=== PATIENT | female | born 1980 | race Caucasian/White ===

== ENCOUNTER 2018-06-08 03:05 | Inpatient (IN) | payer OTHER ==
[~2018-06-08] VITALS: Ht 175.3 cm; Wt 81.6 kg
[2018-06-08] MEDS ORDERED: EPINEPHrine HCL 0.5 ML NEB ONE (03:15)
[2018-06-08] MEDS ORDERED: MAGNESIUM SULFATE 1GM/100ML 200 ML IV ONE (03:17)
[2018-06-08] MEDS: MIDAZOLAM DRIP 50 mg/50mL 50 ML IV SCH ×4 (03:30→13:43)
[2018-06-08] MEDS ORDERED: PROPOFOL 100 ML IV SCH (04:01)
[2018-06-08] MEDS ORDERED: fentaNYL Drip 2500mCg/250mlNS 250 ML IV SCH (04:01)
[2018-06-08] MEDS ORDERED: LORAZEPAM MDV 2MG/ML 10 ML IV ONE (04:11)
[2018-06-08] MEDS: LORazepam 2MG/ML-1ML VIAL IV ONE ×2 (04:11→06:28)
[2018-06-08] MEDS ORDERED: HALOPERIDOL LACTATE 5 MG/ML INJ VIAL ONE (04:12)
[2018-06-08] MEDS ORDERED: ETOMIDATE (2MG/ML) 20ML VIAL IV ONE (04:15)
[2018-06-08] MEDS ORDERED: methylPREDNISolone SOD SUCC 125 MG/2 ML VL IV ONE (04:15)
[2018-06-08] MEDS ORDERED: SUCCINYLCHOLINE CHLORIDE 20 MG/ML 10ML VIAL IV ONE (04:15)
[2018-06-08] MEDS ORDERED: FAMOTIDINE (10MG/ML) 2ML VL IV ONE (04:15)
[2018-06-08] MEDS ORDERED: ROCURONIUM 10MG/ML 10ML VIAL IV ONE (04:15)
[2018-06-08] MEDS ORDERED: diphenhdrAMINE HCL 50 MG/1 ML VL IV ONE (04:15)
[2018-06-08 04:22] VITALS: BP 146/82
[2018-06-08] MEDS ORDERED: LORAZEPAM MDV 2MG/ML 50 MG in SODIUM CHL 0.9% 25 ML IV SCH (05:05)
[2018-06-08 05:57] LABS: Basophils # (auto) 0 uL; Basophils % (auto) 0.1 % (0.0-2.0); Eosinophils # (auto) 0 uL; Lymphocytes # (auto) 1.1 uL; Lymphocytes % (auto) 8.2 % (10.0-50.0); Monocytes # (auto) 0.1 uL; Neutrophils % (auto) 90.7 % (37.0-80.0)
[2018-06-08 05:59] LABS: Eosinophils % (auto) 0.1 % (0.0-7.0); Hematocrit 46.3 % (36.0-46.0); Hemoglobin 15.9 g/dL (12.2-16.2); Mean Corpuscular Hemoglobin 35.9 pg (28.0-32.0); Mean Corpuscular Hgb Conc. 34.3 g/dL (32.0-36.0); Mean Corpuscular Volume 104.5 fL (80.0-100.0); Monocytes % (auto) 0.9 % (0.0-12.0); Neutrophils # (auto) 12.7 uL; Platelet Count (auto) 186 10^3/uL (140-450); Red Blood Cells 4.43 10^6/uL (4.0-5.20); Red Cell Distribution Width 15.2 % (11.8-14.3)
[2018-06-08] MEDS ORDERED: HALOPERIDOL LACTATE 5 MG/ML INJ VIAL IM ONE (06:00)
[2018-06-08 06:08] LABS: Urine Bacteria NONE SEEN /hpf (None Seen); Urine Blood Negative /uL (Negative); Urine Specific Gravity 1.003 (1.001-1.035); Urine WBC <1 /hpf (0 - 5)
[2018-06-08 06:10] VITALS: BP 125/70
[2018-06-08 06:13] LABS: Alanine Aminotransferase 95 U/L (13-56); Albumin 3.6 g/dL (3.4-5.0); Anion Gap 12 (5-15); Aspartate Aminotransferase 82 U/L (15-37); BUN/Creatinine Ratio 8.3; Blood Urea Nitrogen 6 mg/dL (7-18); Calcium 6.9 mg/dL (8.5-10.1); Carbon Dioxide 16 mmol/L (21-32); Chloride 117 mmol/L (98-107); GFR African American > 60 mL/min; GFR Non-African American > 60 mL/min; Glucose 145 mg/dL (74-106); Potassium 3.2 mmol/L (3.5-5.1); Sodium 145 mmol/L (136-145)
[2018-06-08 06:15] LABS: Amphetamine Screen, Urine NEGATIVE (NEGATIVE); Barbiturate Scree,Urine NEGATIVE (NEGATIVE); Benzodiazephine Screen, Urine POSITIVE (NEGATIVE); Cannabinoid Screen, Urine NEGATIVE (NEGATIVE); Cocaine Screen, Urine NEGATIVE (NEGATIVE); Opiate Scree,Urine NEGATIVE (NEGATIVE); Phencyclidine Screen, Urine NEGATIVE (NEGATIVE)
[2018-06-08 06:16] LABS: Alkaline Phosphatase 81 U/L (45-117); Bilirubin, Total 0.6 mg/dL (0.2-1.0); Total Protein 7.2 g/dL (6.4-8.2)
[2018-06-08 08:12] VITALS: BP 115/71
[2018-06-08] MEDS ORDERED: MORPHINE SULFATE 10 MG/ML INJ 1ML SDV IV PRN (09:15)
[2018-06-08] MEDS ORDERED: NITROGLYCERIN 0.4 MG SL TAB SL PRN (09:15)
[2018-06-08] MEDS ORDERED: SODIUM CHLORIDE 0.9% 1,000 ML IV SCH (09:15)
[2018-06-08] MEDS ORDERED: diphenhdrAMINE HCL 50 MG/1 ML VL IV PRN (09:15)
[2018-06-08] MEDS ORDERED: POTASSIUM CHLORIDE 40 MEQ, LIDOCAINE 1% (LOCAL ANESTH.) 4 ML in SODIUM CHL 0.9% 100 ML IV ONE (09:15)
[2018-06-08] MEDS ORDERED: DOXYCYCLINE 100MG/250ML 250 ML IV SCH (09:15)
[2018-06-08] MEDS ORDERED: FAMOTIDINE (10MG/ML) 2ML VL IV SCH (10:00)
[2018-06-08 10:07] VITALS: BP 123/77
[2018-06-08 11:59] LABS: Urine Bacteria NONE SEEN /hpf (None Seen); Urine Blood TRACE /uL (Negative); Urine Mucus FEW (None Seen); Urine Specific Gravity 1.021 (1.001-1.035); Urine WBC 105 /hpf (0 - 5)
[2018-06-08] MEDS ORDERED: ALBUTEROL SULF 2.5 MG/0.5ML(0.5%) NEB SOLN NEB SCH (12:00)
[2018-06-08] MEDS ORDERED: IPRATROPIUM BROM 0.5 MG/2.5ML INH SOL NEB SCH (12:00)
[2018-06-08 12:05] VITALS: BP 133/88
[2018-06-08] MEDS ORDERED: LORazepam 2MG/ML-1ML VIAL ONE (12:05)
[2018-06-08] MEDS ORDERED: LORazepam 2MG/ML-1ML VIAL IV PRN (12:30)
[2018-06-08 13:51] VITALS: BP 127/82
[2018-06-08] MEDS ORDERED: methylPREDNISolone SOD SUCC 125 MG/2 ML VL IV SCH (14:00)
--- NOTE | 2018-06-08 14:00 | NUR ---
Respiratory note: TOOK PATIENT OFF VENTILATOR. TRANSPORT TEAM TOOK OVER PATIENT AND PLACED ON TRANPORT VENT.
== END 2018-06-08 14:29 | disposition short-term general hospital (02) | DRG 915 ==
LOC: EDBD 03:05 → ER 03:05 → OVERFLOW 09:23 → UNDODEPER 14:51
PROVIDERS: ADMIT Nurse Practitioner Acute Care; ATTEND Nurse Practitioner Acute Care
PROC: 5A1935Z Respiratory Ventilation, Less than 24 Consecutive Hours (ICD-10-PCS; principal; 2018-06-08)
PROC: 0BH17EZ Insertion of Endotracheal Airway into Trachea, Via Natural or Artificial Opening (ICD-10-PCS; 2018-06-08)
DX: T78.2XXA Anaphylactic shock, unspecified, initial encounter (principal); J96.00 Acute respiratory failure, unspecified whether with hypoxia or hypercapnia; D47.09 Other mast cell neoplasms of uncertain behavior; R65.10 Systemic inflammatory response syndrome (SIRS) of non-infectious origin without acute organ dysfunction; E87.6 Hypokalemia; D72.829 Elevated white blood cell count, unspecified; Z90.49 Acquired absence of other specified parts of digestive tract; Z90.710 Acquired absence of both cervix and uterus
CPT/HCPCS: 31500; 36415; 36600; 71045; 80053; 80307; 81001; 82805; 85025; 87040; 87070; 87086; 87205; 94002; 94640; 96361; 96365; 96375; 99291; G0378; J2001; J2250; J3490

== ENCOUNTER 2018-07-06 00:26 | Emergency (ER) | payer OTHER ==
[~2018-07-06] VITALS: Ht 172.7 cm; Wt 63.5 kg
[2018-07-06] MEDS ORDERED: LORazepam 2MG/ML-1ML VIAL ONE (00:40)
[2018-07-06] MEDS ORDERED: LORazepam 2MG/ML-1ML VIAL IM ONE (01:00)
[2018-07-06 03:59] LABS: Basophils # (auto) 0 uL; Basophils % (auto) 0.1 % (0.0-2.0); Eosinophils # (auto) 0 uL; Eosinophils % (auto) 0.1 % (0.0-7.0); Hemoglobin 16.1 g/dL (12.2-16.2); Mean Corpuscular Hgb Conc. 34.9 g/dL (32.0-36.0); Monocytes # (auto) 0.6 uL; Monocytes % (auto) 5.1 % (0.0-12.0)
[2018-07-06 04:01] LABS: Lymphocytes # (auto) 1.6 uL; Lymphocytes % (auto) 13.4 % (10.0-50.0); Mean Corpuscular Hemoglobin 36.1 pg (28.0-32.0); Mean Corpuscular Volume 103.3 fL (80.0-100.0); Neutrophils # (auto) 9.8 uL; Neutrophils % (auto) 81.3 % (37.0-80.0); Nucleated Red Blood Cells % 0.1 %; Platelet Count (auto) 251 10^3/uL (140-450); Red Blood Cells 4.45 10^6/uL (4.0-5.20); Red Cell Distribution Width 14.8 % (11.8-14.3); White Blood Cell 12.1 10^3/uL (4.4-10.8)
[2018-07-06 04:12] LABS: Albumin 3.8 g/dL (3.4-5.0); BUN/Creatinine Ratio 9.8; Calcium 7.9 mg/dL (8.5-10.1); Potassium 3.8 mmol/L (3.5-5.1)
[2018-07-06 04:15] LABS: Bilirubin, Total 0.2 mg/dL (0.2-1.0); Total Protein 7.6 g/dL (6.4-8.2)
[2018-07-06 05:40] VITALS: BP 114/76
== END 2018-07-06 05:18 | disposition home or self-care (01) ==
LOC: EDBD 00:26 → ER 00:31
CPT/HCPCS: 36415 ×2; 70450 ×2; 80053 ×2; 85025 ×2; 94761 ×2; 96372 ×2; 99284; J2060

== ENCOUNTER 2018-10-17 01:57 | Emergency (ER) | payer OTHER ==
[~2018-10-17] VITALS: Ht 170.2 cm; Wt 81.6 kg
[2018-10-17 02:59] LABS: Basophils # (auto) 0.1 uL; Basophils % (auto) 0.7 % (0.0-2.0); Eosinophils # (auto) 0 uL; Hematocrit 51.1 % (36.0-46.0); Hemoglobin 16.9 g/dL (12.2-16.2); Lymphocytes # (auto) 3.8 uL; Lymphocytes % (auto) 22.7 % (10.0-50.0); Mean Corpuscular Hgb Conc. 33.1 g/dL (32.0-36.0); Mean Corpuscular Volume 99.7 fL (80.0-100.0); Monocytes # (auto) 0.3 uL; Monocytes % (auto) 1.9 % (0.0-12.0); Neutrophils # (auto) 12.6 uL; Neutrophils % (auto) 74.7 % (37.0-80.0); Nucleated Red Blood Cells % 0.1 %; Platelet Count (auto) 299 10^3/uL (140-450); Red Blood Cells 5.12 10^6/uL (4.0-5.20); White Blood Cell 16.8 10^3/uL (4.4-10.8)
[2018-10-17 03:20] LABS: Alanine Aminotransferase 79 U/L (13-56); Albumin 4.3 g/dL (3.4-5.0); Anion Gap 22 (5-15); Aspartate Aminotransferase 57 U/L (15-37); BUN/Creatinine Ratio 11.5; Blood Urea Nitrogen 10 mg/dL (7-18); Calcium 8.9 mg/dL (8.5-10.1); Carbon Dioxide 13 mmol/L (21-32); Chloride 107 mmol/L (98-107); GFR African American 94 mL/min; GFR Non-African American 77 mL/min; Glucose 207 mg/dL (74-106); Potassium 3.1 mmol/L (3.5-5.1); Sodium 142 mmol/L (136-145)
[2018-10-17 03:28] LABS: Alkaline Phosphatase 82 U/L (45-117); Bilirubin, Total 0.3 mg/dL (0.2-1.0); Magnesium 1.8 mg/dL (1.6-2.6); Total Protein 8.6 g/dL (6.4-8.2)
[2018-10-17 03:53] LABS: Urine Bacteria FEW /hpf (None Seen); Urine Blood Negative /uL (Negative); Urine Specific Gravity 1.007 (1.001-1.035); Urine WBC 1 /hpf (0 - 5)
[2018-10-17] MEDS ORDERED: SODIUM CHLORIDE 0.9% 1,000 ML IV ONE (07:45)
[2018-10-17] MEDS ORDERED: diphenhdrAMINE HCL 50 MG/1 ML VL IV ONE (07:45)
[2018-10-17] MEDS ORDERED: EPINEPHrine HCL 1 MG/1 ML AMP SC ONE (08:30)
[2018-10-17] MEDS ORDERED: methylPREDNISolone SOD SUCC 125 MG/2 ML VL IV ONE (08:30)
[2018-10-17 09:10] VITALS: BP 121/67
== END 2018-10-17 10:19 | disposition home or self-care (01) ==
LOC: EDBD 01:57 → ER 02:02
DX: T78.40XA Allergy, unspecified, initial encounter (principal); X58.XXXA Exposure to other specified factors, initial encounter; Z88.6 Allergy status to analgesic agent
CPT/HCPCS: 36415; 71045; 80053; 81001; 83735; 84484; 85025; 93005; 96372; 96374; 96375; 99284; J0171; J1200; J2930

== ENCOUNTER 2018-11-09 00:05 | Emergency (ER) | payer OTHER ==
[~2018-11-09] VITALS: Ht 162.6 cm; Wt 83.9 kg
[2018-11-09] MEDS ORDERED: methylPREDNISolone SOD SUCC 125 MG/2 ML VL ONE (00:09)
== END 2018-11-09 01:09 | disposition left against medical advice (07) ==
LOC: EDBD 00:05 → ER 00:08
DX: T78.2XXA Anaphylactic shock, unspecified, initial encounter (principal); F43.22 Adjustment disorder with anxiety; Y92.89 Other specified places as the place of occurrence of the external cause; Z53.29 Procedure and treatment not carried out because of patient's decision for other reasons
CPT/HCPCS: 36600; 82805; 99284; J2930

== ENCOUNTER 2019-02-27 23:24 | Emergency (ER) | payer OTHER ==
[~2019-02-27] VITALS: Ht 170.2 cm; Wt 68.0 kg
[2019-02-28] MEDS ORDERED: ALBUTEROL SULF 2.5 MG/0.5ML(0.5%) NEB SOLN NEB ONE
[2019-02-28] MEDS ORDERED: IPRATROPIUM BROM 0.5 MG/2.5ML INH SOL NEB ONE
[2019-02-28] MEDS ORDERED: LORazepam 2MG/ML-1ML VIAL IV ONE
[2019-02-28 00:58] LABS: Basophils # (auto) 0 uL; Basophils % (auto) 0.2 % (0.0-2.0); Eosinophils # (auto) 0 uL; Eosinophils % (auto) 0.5 % (0.0-7.0); Hematocrit 47.4 % (36.0-46.0); Hemoglobin 16.7 g/dL (12.2-16.2); Lymphocytes # (auto) 4.4 uL; Lymphocytes % (auto) 45.2 % (10.0-50.0); Mean Corpuscular Hemoglobin 33.3 pg (28.0-32.0); Mean Corpuscular Hgb Conc. 35.2 g/dL (32.0-36.0); Mean Corpuscular Volume 94.7 fL (80.0-100.0); Monocytes # (auto) 0.4 uL; Monocytes % (auto) 4.6 % (0.0-12.0); Neutrophils # (auto) 4.9 uL; Neutrophils % (auto) 49.5 % (37.0-80.0); Platelet Count (auto) 244 10^3/uL (140-450); Red Blood Cells 5.01 10^6/uL (4.0-5.20); Red Cell Distribution Width 12.7 % (11.8-14.3); White Blood Cell 9.8 10^3/uL (4.4-10.8)
[2019-02-28 01:13] LABS: Albumin 3.9 g/dL (3.4-5.0); Calcium 8.3 mg/dL (8.5-10.1); Potassium 3.6 mmol/L (3.5-5.1)
[2019-02-28 01:15] LABS: BUN/Creatinine Ratio 10.5
[2019-02-28 01:18] LABS: Bilirubin, Total 0.1 mg/dL (0.2-1.0); Total Protein 7.7 g/dL (6.4-8.2)
[2019-02-28 02:51] VITALS: BP 109/74
== END 2019-02-28 03:33 | disposition home or self-care (01) ==
LOC: EDBD 23:24 → ER 23:26
DX: F41.0 Panic disorder [episodic paroxysmal anxiety] (principal); F43.22 Adjustment disorder with anxiety; F17.210 Nicotine dependence, cigarettes, uncomplicated
CPT/HCPCS: 36415; 71045; 80053; 85025; 94640; 96374; 99284; J2060; J7611; J7644

== ENCOUNTER 2019-05-12 03:01 | Emergency (ER) | payer OTHER ==
[~2019-05-12] VITALS: Ht 175.3 cm; Wt 86.2 kg
[2019-05-12] MEDS ORDERED: EPINEPHrine HCL 0.5 ML NEB ONE (03:08)
[2019-05-12] MEDS ORDERED: EPINEPHrine HCL 0.5 ML NEB NEB ONE (03:15)
[2019-05-12 03:29] LABS: Hematocrit 51.8 % (36.0-46.0); Hemoglobin 17.3 g/dL (12.2-16.2); Mean Corpuscular Hemoglobin 32.8 pg (28.0-32.0); Mean Corpuscular Hgb Conc. 33.4 g/dL (32.0-36.0); Mean Corpuscular Volume 98.2 fL (80.0-100.0); Platelet Count (auto) 317 10^3/uL (140-450); Red Blood Cells 5.27 10^6/uL (4.0-5.20); Red Cell Distribution Width 13.3 % (11.8-14.3); White Blood Cell 16.1 10^3/uL (4.4-10.8)
[2019-05-12 03:33] LABS: Band Neutrophils % (manual) 0; Basophils % (manual) 0 (0.0-2.0); Blast Cells 0; Metamyelocytes % 0; Myelocytes % 0; Promyelocytes % 0; Reactive Lymphocytes 0
[2019-05-12 03:37] LABS: Anion Gap 15 (5-15); BUN/Creatinine Ratio 8.1; Blood Urea Nitrogen 7 mg/dL (7-18); Calcium 8.9 mg/dL (8.5-10.1); Carbon Dioxide 12 mmol/L (21-32); Chloride 115 mmol/L (98-107); GFR African American 95 mL/min; GFR Non-African American 78 mL/min; Glucose 127 mg/dL (74-106); Potassium 3.3 mmol/L (3.5-5.1); Sodium 142 mmol/L (136-145)
[2019-05-12 04:53] LABS: Alanine Aminotransferase 73 U/L (13-56); Alkaline Phosphatase 79 U/L (45-117); Aspartate Aminotransferase 40 U/L (15-37); Bilirubin, Total 0.3 mg/dL (0.2-1.0)
[2019-05-12 04:54] LABS: Total Protein 8.4 g/dL (6.4-8.2)
[2019-05-12 05:45] LABS: Eosinophils % (manual) 1 (0-7); Lymphocytes % (manual) 51 (10.0-50.0); Monocytes % (manual) 6 (0-12)
[2019-05-12 06:00] VITALS: BP 104/63
== END 2019-05-12 06:35 | disposition home or self-care (01) ==
LOC: EDBD 03:01 → ER 03:08
DX: T78.2XXA Anaphylactic shock, unspecified, initial encounter (principal); F17.210 Nicotine dependence, cigarettes, uncomplicated; Z88.6 Allergy status to analgesic agent; Z88.1 Allergy status to other antibiotic agents; Z88.8 Allergy status to other drugs, medicaments and biological substances; X58.XXXA Exposure to other specified factors, initial encounter
CPT/HCPCS: 36415; 70360; 80053; 85007; 85027; 94640

== ENCOUNTER 2019-07-13 00:20 | Inpatient (IN) | payer OTHER ==
[~2019-07-13] VITALS: Ht 170.2 cm; Wt 86.0 kg
[2019-07-13] VITALS (52 sets, daily range): BP systolic 102–162; BP diastolic 46–103
[2019-07-13] MEDS ORDERED: IPRATROPIUM BROM 0.5 MG/2.5ML INH SOL NEB ONE (00:45)
[2019-07-13] MEDS ORDERED: ALBUTEROL SULF 2.5 MG/0.5ML(0.5%) NEB SOLN NEB ONE (00:45)
[2019-07-13] MEDS ORDERED: ETOMIDATE (2MG/ML) 20ML VIAL IV ONE ×2 (00:50→05:30)
[2019-07-13] MEDS ORDERED: SUCCINYLCHOLINE CHLORIDE 20 MG/ML 10ML VIAL IV ONE ×2 (00:51→05:30)
[2019-07-13] MEDS: PROPOFOL 100 ML IV SCH ×3 (00:57→22:52)
[2019-07-13] MEDS: MIDAZOLAM DRIP 50 mg/50mL 50 ML IV SCH ×3 (00:57→20:44)
[2019-07-13] MEDS ORDERED: PROPOFOL 100 ML IV ONE (01:05)
[2019-07-13] MEDS ORDERED: MIDAZOLAM DRIP 50 mg/50mL 50 ML IV ONE (01:05)
[2019-07-13] MEDS ORDERED: SODIUM BICARBONATE 8.4% INJ 50ML SYRINGE ONE (01:41)
[2019-07-13] MEDS ORDERED: SODIUM BICARBONATE 8.4 % INJ 50ML VIAL IV ONE (01:45)
[2019-07-13] MEDS ORDERED: PHENobarbital SODIUM 65 MG/ML VL IV ONE (02:00)
[2019-07-13] MEDS ORDERED: PHENobarbital SODIUM 130 MG/ML VL IV ONE ×2 (02:15)
[2019-07-13 02:20] LABS: Basophils # (auto) 0.1 uL; Basophils % (auto) 0.4 % (0.0-2.0); Eosinophils # (auto) 0.1 uL; Eosinophils % (auto) 0.4 % (0.0-7.0); Hematocrit 48.9 % (36.0-46.0); Hemoglobin 16.8 g/dL (12.2-16.2); Lymphocytes # (auto) 5.9 uL; Lymphocytes % (auto) 37.4 % (10.0-50.0); Mean Corpuscular Hemoglobin 33.4 pg (28.0-32.0); Mean Corpuscular Hgb Conc. 34.4 g/dL (32.0-36.0); Mean Corpuscular Volume 97.1 fL (80.0-100.0); Monocytes # (auto) 0.8 uL; Monocytes % (auto) 4.8 % (0.0-12.0); Nucleated Red Blood Cells % 0.2 %; Platelet Count (auto) 303 10^3/uL (140-450); Red Blood Cells 5.04 10^6/uL (4.0-5.20); Red Cell Distribution Width 13.4 % (11.8-14.3); White Blood Cell 15.8 10^3/uL (4.4-10.8)
[2019-07-13 02:36] LABS: Albumin 4.4 g/dL (3.4-5.0); Anion Gap 14 (5-15); Calcium 8.2 mg/dL (8.5-10.1); Carbon Dioxide 16 mmol/L (21-32); Chloride 114 mmol/L (98-107); Glucose 142 mg/dL (74-106); Sodium 144 mmol/L (136-145)
[2019-07-13 02:39] LABS: Alanine Aminotransferase 65 U/L (13-56); Aspartate Aminotransferase 39 U/L (15-37); BUN/Creatinine Ratio 5.6; Bilirubin, Total 0.2 mg/dL (0.2-1.0); Blood Urea Nitrogen 5 mg/dL (7-18); GFR African American 91 mL/min; GFR Non-African American 75 mL/min; Potassium 2.8 mmol/L (3.5-5.1); Total Protein 8.6 g/dL (6.4-8.2)
[2019-07-13 02:41] LABS: INR 0.96 (0.9-1.15); Partial Thromboplastin Time 23.9 sec (23.64-32.05)
[2019-07-13 02:42] LABS: Alkaline Phosphatase 84 U/L (45-117)
[2019-07-13] MEDS: POTASSIUM CHL 20MEQ/100ML 100 ML IV SCH ×2 (02:45→04:45)
[2019-07-13] MEDS ORDERED: POTASSIUM CHL 20MEQ/100ML 100 ML IV ONE (02:48)
[2019-07-13] MEDS ORDERED: SODIUM CHLORIDE 0.9% 1,000 ML IV SCH (05:48)
[2019-07-13] MEDS ORDERED: ALBUTEROL SULF 2.5 MG/0.5ML(0.5%) NEB SOLN NEB PRN (06:00)
[2019-07-13] MEDS ORDERED: ONDANSETRON HCL 4 MG/2 ML VIAL IV PRN (06:00)
[2019-07-13] MEDS ORDERED: diphenhdrAMINE HCL 50 MG/1 ML VL IV PRN (06:00)
[2019-07-13] MEDS ORDERED: IPRATROPIUM BROM 0.5 MG/2.5ML INH SOL NEB PRN ×2 (06:00→11:45)
[2019-07-13] MEDS ORDERED: ACETAMINOPHEN 325 MG TAB PO PRN (06:00)
[2019-07-13 07:55] LABS: Basophils # (auto) 0 uL; Basophils % (auto) 0.2 % (0.0-2.0); Eosinophils # (auto) 0 uL; Hematocrit 42.9 % (36.0-46.0); Hemoglobin 14.5 g/dL (12.2-16.2); Lymphocytes # (auto) 1.9 uL; Lymphocytes % (auto) 14.6 % (10.0-50.0); Mean Corpuscular Hemoglobin 32.9 pg (28.0-32.0); Mean Corpuscular Hgb Conc. 33.8 g/dL (32.0-36.0); Mean Corpuscular Volume 97.5 fL (80.0-100.0); Monocytes # (auto) 0.9 uL; Monocytes % (auto) 7.3 % (0.0-12.0); Neutrophils # (auto) 10.1 uL; Neutrophils % (auto) 77.9 % (37.0-80.0); Platelet Count (auto) 210 10^3/uL (140-450); Red Blood Cells 4.41 10^6/uL (4.0-5.20); Red Cell Distribution Width 13.4 % (11.8-14.3)
[2019-07-13] MEDS: fentaNYL Drip 2500mCg/250mlNS 250 ML IV SCH (08:07)
[2019-07-13 08:16] LABS: Calcium 7.2 mg/dL (8.5-10.1); Potassium 3.5 mmol/L (3.5-5.1)
[2019-07-13] MEDS ORDERED: DOXYCYCLINE 100MG/250ML 250 ML IV SCH (10:00)
[2019-07-13] MEDS: LEVALBUTEROL HCL 1.25 MG/3 ML NEB NEB SCH ×3 (12:15→22:31)
[2019-07-13] MEDS ORDERED: LORazepam 2MG/ML-1ML VIAL ONE (13:32)
[2019-07-13] MEDS ORDERED: LORazepam 2MG/ML-1ML VIAL IV PRN (13:45)
[2019-07-13] MEDS: D5W 5% 1,000 ML IV SCH (13:50)
[2019-07-13 14:23] LABS: Cannabinoid Screen, Urine NEGATIVE (NEGATIVE)
[2019-07-13 14:37] LABS: Amphetamine Screen, Urine NEGATIVE (NEGATIVE); Barbiturate Scree,Urine POSITIVE (NEGATIVE); Benzodiazephine Screen, Urine POSITIVE (NEGATIVE); Cocaine Screen, Urine NEGATIVE (NEGATIVE); Opiate Scree,Urine NEGATIVE (NEGATIVE); Phencyclidine Screen, Urine NEGATIVE (NEGATIVE)
[2019-07-13] MEDS ORDERED: FOLIC ACID 1 MG in D5W 5% 50 ML IV ONE (14:45)
[2019-07-13] MEDS: THIAMINE 100mg/ml INJ (200mg/2ml VIAL) IV ONE ×2 (15:08→15:58)
[2019-07-13] MEDS: FAMOTIDINE (10MG/ML) 2ML VL IV SCH (22:00)
[2019-07-13] MEDS: diphenhdrAMINE HCL 50 MG/1 ML VL IV SCH (22:00)
[2019-07-13] MEDS: HYDROCORTISONE SOD SUCC 100 MG/2ML INJ VIAL IV SCH (22:00)
[2019-07-14] VITALS (90 sets, daily range): BP systolic 91–130; BP diastolic 46–89
[2019-07-14] MEDS: MIDAZOLAM DRIP 50 mg/50mL 50 ML IV SCH ×2 (01:20→06:09)
[2019-07-14 04:32] LABS: Basophils # (auto) 0 uL; Basophils % (auto) 0.2 % (0.0-2.0); Eosinophils # (auto) 0 uL; Hematocrit 38.2 % (36.0-46.0); Hemoglobin 13.2 g/dL (12.2-16.2); Lymphocytes # (auto) 0.7 uL; Mean Corpuscular Hemoglobin 33.5 pg (28.0-32.0); Mean Corpuscular Hgb Conc. 34.5 g/dL (32.0-36.0); Monocytes # (auto) 0.5 uL; Monocytes % (auto) 4.2 % (0.0-12.0); Neutrophils # (auto) 10.8 uL; Neutrophils % (auto) 89.6 % (37.0-80.0); Nucleated Red Blood Cells % 0.1 %; Platelet Count (auto) 183 10^3/uL (140-450); Red Blood Cells 3.93 10^6/uL (4.0-5.20); Red Cell Distribution Width 13.4 % (11.8-14.3); White Blood Cell 12.1 10^3/uL (4.4-10.8)
[2019-07-14] MEDS: D5W 5% 1,000 ML IV SCH ×2 (04:32→17:39)
[2019-07-14] MEDS: PROPOFOL 100 ML IV SCH ×2 (04:33→09:53)
[2019-07-14 04:52] LABS: BUN/Creatinine Ratio 7.8; Calcium 7.5 mg/dL (8.5-10.1); Potassium 3.3 mmol/L (3.5-5.1)
[2019-07-14] MEDS: HYDROCORTISONE SOD SUCC 100 MG/2ML INJ VIAL IV SCH ×2 (06:00→13:45)
[2019-07-14] MEDS: diphenhdrAMINE HCL 50 MG/1 ML VL IV SCH ×2 (06:07→13:45)
[2019-07-14] MEDS: LEVALBUTEROL HCL 1.25 MG/3 ML NEB NEB SCH ×2 (06:27→13:35)
[2019-07-14] MEDS: fentaNYL Drip 2500mCg/250mlNS 250 ML IV SCH (08:28)
[2019-07-14] MEDS ORDERED: POTASSIUM EFFERVESENT TAB 25 MEQ GT ONE (09:45)
[2019-07-14] MEDS ORDERED: ENOXAPARIN SOD 40 MG/0.4 ML SYRINGE SC SCH (10:00)
[2019-07-14] MEDS ORDERED: THIAMINE 100mg/ml INJ (200mg/2ml VIAL) IV SCH (10:00)
[2019-07-14] MEDS ORDERED: FOLIC ACID 1 MG in D5W 5% 50 ML IV SCH (10:00)
[2019-07-14] MEDS: FAMOTIDINE (10MG/ML) 2ML VL IV SCH (10:00)
== END 2019-07-14 21:00 | disposition short-term general hospital (02) | DRG 208 ==
LOC: EDSEX 00:20 → EDBD 00:20 → ER 00:27 → TELE 02:28 → ICU WEST 12:53
PROVIDERS: ADMIT Hospitalist; ATTEND Internal Medicine
PROC: 5A1945Z Respiratory Ventilation, 24-96 Consecutive Hours (ICD-10-PCS; principal; 2019-07-13)
PROC: 0BH17EZ Insertion of Endotracheal Airway into Trachea, Via Natural or Artificial Opening (ICD-10-PCS; 2019-07-13)
DX: J96.00 Acute respiratory failure, unspecified whether with hypoxia or hypercapnia (principal); G93.1 Anoxic brain damage, not elsewhere classified; T78.2XXA Anaphylactic shock, unspecified, initial encounter; R65.10 Systemic inflammatory response syndrome (SIRS) of non-infectious origin without acute organ dysfunction; E87.2 Acidosis; F17.210 Nicotine dependence, cigarettes, uncomplicated; E87.6 Hypokalemia; F41.9 Anxiety disorder, unspecified; Z85.41 Personal history of malignant neoplasm of cervix uteri; Z85.820 Personal history of malignant melanoma of skin; Z87.892 Personal history of anaphylaxis; Z88.5 Allergy status to narcotic agent; Z90.710 Acquired absence of both cervix and uterus
CPT/HCPCS: 36415; 36600; 70450; 71045; 80048; 80053; 80061; 80307; 81025; 82805; 83036; 83880; 84484; 85025; 85610; 85730; 87070; 87081; 87086; 87205; 93005; 94002; 94003; 94640; 99291; A4618; G0378; J0330; J2250; J2704; J3480; J3490; J7060

== ENCOUNTER 2020-12-01 04:23 | Emergency (ER) | payer OTHER ==
[~2020-12-01] VITALS: Ht 175.3 cm; Wt 77.1 kg
[2020-12-01 05:02] LABS: Urine WBC None Seen /hpf (0 - 5)
[2020-12-01 05:16] LABS: Urine Bacteria NONE SEEN /hpf (None Seen); Urine Blood Negative /uL (Negative); Urine Specific Gravity 1.002 (1.001-1.035)
[2020-12-01] MEDS ORDERED: FAMOTIDINE 20 MG TAB PO ONE (05:45)
[2020-12-01] MEDS ORDERED: DexAMETHasone SOD PHOS 10MG/1ML VIAL INJ PO ONE (05:45)
[2020-12-01] MEDS ORDERED: LORATADINE 10 MG TAB PO ONE (05:45)
[2020-12-01 06:05] VITALS: BP 121/70
== END 2020-12-01 06:15 | disposition home or self-care (01) ==
LOC: ER 04:23 → EDBD 04:23 → ER 06:15
DX: T78.40XA Allergy, unspecified, initial encounter (principal); F17.210 Nicotine dependence, cigarettes, uncomplicated; Z88.1 Allergy status to other antibiotic agents; Z88.6 Allergy status to analgesic agent; Z88.8 Allergy status to other drugs, medicaments and biological substances; X58.XXXA Exposure to other specified factors, initial encounter
CPT/HCPCS: 71045; 81001; 93005; 99285; J1100